=== PATIENT | male | born 1995 | race Caucasian/White ===

== ENCOUNTER 2024-07-04 23:18 | Emergency (ER) | payer OTHER ==
[~2024-07-04] VITALS: Ht 175.3 cm; Wt 81.8 kg
[2024-07-04 23:29] VITALS: BP 146/95; PULSE 112; RESP 18; TEMP 98.5; O2SAT 99
== END 2024-07-04 23:41 ==
LOC: EMS 23:18
DX: Z02.89 Encounter for other administrative examinations (principal); V49.40XA Driver injured in collision with unspecified motor vehicles in traffic accident, initial encounter; Y93.89 Activity, other specified; Y92.410 Unspecified street and highway as the place of occurrence of the external cause; Y99.8 Other external cause status
CPT/HCPCS: 99283; Z7502